=== PATIENT | male | born 1995 | race Hispanic/Latino ===

== ENCOUNTER 2022-03-03 13:45 | Emergency (ER) | payer OTHER, SELFPAY ==
[2022-03-03 14:17] VITALS: BP 145/93; PULSE 56; RESP 16; TEMP 36.2; O2SAT 100
--- NOTE | 2022-03-03 16:27 | PC.NURSE ---
Called pt for ekg, no response
--- NOTE | 2022-03-03 19:37 | PC.NURSE ---
Called 2 times to be placed in room,no answer, not in waiting room.
== END 2022-03-03 16:25 | disposition left against medical advice (07) ==
DX: Z53.21 Procedure and treatment not carried out due to patient leaving prior to being seen by health care provider (principal)
CPT/HCPCS: 99199

== ENCOUNTER 2022-09-03 12:14 | Emergency (ER) | payer OTHER, SELFPAY ==
--- NOTE | ~2022-09-03 | XR_ITS ---
EXAMINATION: XR shoulder LT min 2V DATE: 09/03/2022 13:01 INDICATION: Left shoulder pain. Injury. TECHNIQUE: 4 views of left shoulder were obtained. COMPARISON: None. FINDINGS: Bone alignment is normal. No fracture. Joint spaces are well maintained. IMPRESSION: 1. Normal left shoulder. Reviewed, dictated and finalized at location A. IMPRESSION: 1. Normal left shoulder.
[2022-09-03 12:24] VITALS: BP 135/72; PULSE 68; RESP 12; TEMP 36.3; O2SAT 97
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
== END 2022-09-03 14:14 | disposition home or self-care (01) ==
PROVIDERS: Emergency Provider Nurse Practitioner Adult Health
DX: S46.912A Strain of unspecified muscle, fascia and tendon at shoulder and upper arm level, left arm, initial encounter (principal); S40.012A Contusion of left shoulder, initial encounter; V28.49XA Other motorcycle driver injured in noncollision transport accident in traffic accident, initial encounter
CPT/HCPCS: 73030; 99283

== ENCOUNTER 2023-07-10 18:25 | Emergency (ER) | payer OTHER, SELFPAY ==
[2023-07-10 18:57] VITALS: BP 144/83; PULSE 68; RESP 20; TEMP 35.9; O2SAT 94
--- NOTE | 2023-07-10 19:03 | ECG_ITS ---
SEE SCANNED COPY FOR CONFIRMED REPORT MTDD
[2023-07-10 20:22] VITALS: BP 125/76; PULSE 75; RESP 18; O2SAT 100
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
== END 2023-07-10 20:24 | disposition home or self-care (01) ==
PROVIDERS: Emergency Provider Emergency Medicine
DX: T75.4XXA Electrocution, initial encounter (principal); I45.9 Conduction disorder, unspecified; W86.1XXA Exposure to industrial wiring, appliances and electrical machinery, initial encounter
CPT/HCPCS: 93005; 99283